=== PATIENT | male | born 1955 | race Caucasian/White ===

== ENCOUNTER 2024-08-29 08:27 | Outpatient (CLI) | payer MEDICARE, BC | END 2024-08-29 08:28 | disposition home or self-care (01) | LOC: SCSMRI 08:27 | PROVIDERS: ATTEND Physician Assistant Medical | DX: K74.60 Unspecified cirrhosis of liver (principal); K64.9 Unspecified hemorrhoids; K57.90 Diverticulosis of intestine, part unspecified, without perforation or abscess without bleeding; E83.119 Hemochromatosis, unspecified; K86.89 Other specified diseases of pancreas; R94.5 Abnormal results of liver function studies; Z86.0100 Personal history of colon polyps, unspecified | CPT/HCPCS: 36415; 74183; 82565 ==